=== PATIENT | female | born 1950 | race Caucasian/White ===

== ENCOUNTER → 2021-10-03 10:30 | Outpatient (CLI) | payer MEDICARE, SELFPAY ==
--- NOTE | 2021-10-03 10:36 | DI.US.S_ITS ---
PROCEDURE: US ABDOMEN LIMITED INDICATIONS: Ventral hernia without obstruction or gangrene TECHNIQUE: Real-time focused scanning was performed of the abdomen, with image documentation. COMPARISON: None. FINDINGS: No gross anterior abdominal wall defect or herniation sac is seen. No soft tissue mass or fluid collection. IMPRESSION: No gross ventral hernia is identified. Dictated by: Sarmad Portillo M.D. on 10/03/2021 at 13:08 Approved by: Sarmad Portillo M.D. on 10/03/2021 at 13:08
--- NOTE | 2021-10-03 10:53 | DI.CT.S_ITS ---
PROCEDURE: CT CHEST WO CON INDICATIONS: Ventral hernia without obstruction or gangrene TECHNIQUE: Noncontrast 5 mm thick sections acquired from the pulmonary apices to the posterior costophrenic angles. 1 mm lung window, 5 mm thick coronal and sagittal and 7 mm axial MIP reformats were then acquired. For radiation dose reduction, the following was used: automated exposure control, adjustment of mA and/or kV according to patient size. COMPARISON: None. FINDINGS: Image quality: Excellent. Lungs and pleura: There are multiple small lung nodules. Spiritual Care Coordinator nodules are listed in the following: Nodule 1: 5 mm; right middle lobe; series 3, image 146. Nodule 2: 3 mm; right middle lobe; series 3 image 153. Nodule 3: 3 mm; right lower lobe; series 3, image 170. Nodule 4: 3 mm; left upper lobe; series 3, image 106. No acute air space opacities. There are lingular scars and atelectasis. No pleural effusions or pneumothorax. Central and peripheral airways are patent and normal in caliber. Mediastinum: Heart size is normal. Minimal coronary artery calcification. No pericardial effusion. No mediastinal adenopathy by size criteria. Thoracic aorta and central pulmonary arteries are normal in size. Esophagus is normal in caliber. No hiatal hernia. Bones and chest wall: Ill-defined lucency in T10 vertebral body adjacent to the T9-T10 intervertebral disc. Degenerative disc disease is present, severe at T9-T10, moderate at C5-C6, C6-C7, C7-C8, T10-T11 and T11-T12. No vertebral body compression fractures. No axillary or supraclavicular adenopathy by size criteria. Thyroid gland is normal. Abdomen: Hepatic steatosis. IMPRESSION: 1. There are multiple small lung nodules bilaterally. Please see enclosed follow-up recommendation. 2. Ill-defined lucency in T10 vertebral body adjacent to the T9-T10 intervertebral disc. There is severe degenerative disc disease at T9-T10. The lucent appearance on CT may be related to a discogenic process. If clinically indicated, MRI may be obtained for further evaluation. Fleischner Society criteria for SOLID lung nodule followup. Nodule size (mm)Low-risk patientHigh-risk patient?4No follow-up neededFollow-up at 12 mo; if no change, no further follow-up>3-9Nmbaoi-df CT at 12 mo; if no change, no further follow-up needed.Initial follow-up CT at 6-12 mo, then 18-24 mo if no change. >6-8Initial follow-up CT at 6-12 mo, then 18-24 mo if no change. Initial follow-up CT at 3-6 mo, then 9-12 mo and 24 mo if no change. >8Follow-up CT at 3, 9, 24 mo. Or PET and/or biopsy.Same as for low-risk pts. Dominant nodule(s) with part-solid or solid component. [address] to confirm persistence. If persistent, consider biopsy or surgical resection, luis if lesions have >5 mm solid component. Dictated by: Olya Spence M.D. on 10/03/2021 at 13:16 Approved by: Olya Spence M.D. on 10/03/2021 at 14:12
== END ==
PROVIDERS: PCP Physician Assistant; Referring Provider Physician Assistant; Visit Provider Physician Assistant
DX: K43.9 Ventral hernia without obstruction or gangrene (principal); R91.8 Other nonspecific abnormal finding of lung field
CPT/HCPCS: 71250; 76705

== ENCOUNTER → 2021-11-14 15:38 | Outpatient (CLI) | payer MEDICARE, SELFPAY ==
--- NOTE | 2021-11-14 | DI.MRI.S_ITS ---
PROCEDURE: MR THORACIC SPINE WO/W CON INDICATIONS: DISC DEGENERATION TECHNIQUE: Noncontrast sagittal T1 spin echo and T2 fast spin echo, sagittal STIR, axial T1 and T2 fast spin echo through the thoracic spine. After the administration of contrast, axial and sagittal T1 spin echo with fat saturation through the thoracic spine. COMPARISON: [facility], CT, CT CHEST WO CON, 10/03/2021, 11:07. FINDINGS: Image quality: This examination is limited by involuntary motion artifact. Alignment and curvature: Accentuated thoracic kyphosis is seen. Minimal retrolisthesis is seen at T10-T11 and T11-T12. Marrow: Generalized irregularity can be seen of the bone marrow. Multiple levels of endplate edema can be seen, with associated endplate enhancement. Within the T10 vertebral body, there is a stippled lesion that is hyperintense on T1 weighted and T2 weighted imaging with increased STIR signal and generalized enhancement can be seen within the T10 vertebral body. No acute vertebral body compression fractures. Spinal cord: Visualized spinal cord is of normal signal and size, without abnormal enhancement. Paraspinous soft tissues: No paravertebral masses or abnormal enhancement. Miscellaneous: Lower cervical spine degenerative change is partially seen. At T5-T6, there is moderate disc space narrowing, with associated endplate irregularity, with endplate edema and associated mild enhancement. Mild disc bulge is seen, with minimal to mild central canal narrowing. Moderate bilateral neural foraminal narrowing is seen. At T6-T7, there is moderate loss of disc height. Relatively prominent endplate edema can be seen, with endplate enhancement. There is a central/left disc protrusion, with mild central canal narrowing and mild mass effect upon ventral/left spinal cord. There is moderate left-sided and minimal right-sided neural foraminal narrowing. At T9-T10, there is moderate loss of disc height. Mild disc bulge is seen, with mild central canal narrowing. Mild bilateral neural foraminal narrowing is seen. At T11-T12, there is moderate loss of disc height. Mild disc bulge is seen, with a mild central disc protrusion. Mild central canal narrowing is seen at this level. There is moderate left-sided and minimal right-sided neural foraminal narrowing. IMPRESSION: Multiple levels of thoracic spine degenerative change are seen. No acute fractures are seen. Multiple levels of endplate edema and associated endplate enhancement can be seen. Within the T10 vertebral body there is an enhancing lesion. Differential diagnosis includes metastatic disease and an atypical vertebral body hemangioma. The appearance on the prior recent CT study would favor vertebral body hemangioma. If clinically appropriate, please consider a follow-up whole-body nuclear medicine bone scan for further evaluation. Dictated by: Dylon Joyner M.D. on 11/14/2021 at 16:23 Approved by: Dylon Joyner M.D. on 11/14/2021 at 16:29
== END ==
PROVIDERS: PCP Physician Assistant; Referring Provider Physician Assistant; Visit Provider Physician Assistant
DX: M51.34 Other intervertebral disc degeneration, thoracic region (principal); M89.9 Disorder of bone, unspecified
CPT/HCPCS: 72157